=== PATIENT | male | born 1945 | race Caucasian/White ===

== ENCOUNTER 2021-07-22 13:59 | Emergency (ER) | payer MEDICARE, BC ==
[~2021-07-22] VITALS: Ht 175.3 cm; Wt 70.9 kg
[2021-07-22 14:39] LABS: MEAN CORPUSCULAR HEMOGLOBIN 34.5 PG (27.0-31.0); MEAN CORPUSCULAR HGB CONC 33.4 g/dL (33.0-36.5); MEAN CORPUSCULAR VOLUME 103.3 FL (78-98); MEAN PLATELET VOLUME 7.1 FL (7.4-10.4); PLATELET COUNT 141 X10'3 (140-440); RED BLOOD COUNT 1.77 X10'6 (4.70-6.10); RED CELL DISTRIBUTION WIDTH 18.4 % (11.5-14.5)
[2021-07-22 14:50] LABS: ALANINE AMINOTRANSFERASE 21 U/L (12-78); ALBUMIN 3.7 G/DL (3.4-5.0); ALBUMIN/GLOBULIN RATIO 0.9 (1.1-1.5); ALKALINE PHOSPHATASE 63 IU/L (46-116); ANION GAP 10 (8-16); ASPARTATE AMINO TRANSFERASE 13 U/L (10-37); BILIRUBIN,TOTAL 0.3 MG/DL (0.1-1.0); BLOOD UREA NITROGEN 25 MG/DL (7-18); BUN/CREATININE RATIO 15.1 (5.4-32.0); CALCIUM 8.7 MG/DL (8.5-10.1); CHLORIDE 103 MMOL/L (99-107); CREATININE 1.66 MG/DL (0.60-1.10); GLUCOSE 142 MG/DL (70-104); POTASSIUM 3.9 MMOL/L (3.5-5.1); SODIUM 139 MMOL/L (135-145); TOTAL CARBON DIOXIDE 26.1 MMOL/L (24-32); TOTAL PROTEIN 7.7 G/DL (6.4-8.2); eGFR 40 ML/MIN
[2021-07-22 15:02] LABS: WHITE BLOOD COUNT 46.1 X10'3 (4.5-11.0)
[2021-07-22 15:03] LABS: HEMATOCRIT 18.3 % (42.0-52.0); HEMOGLOBIN 6.1 g/dl (14.0-17.9)
--- NOTE | 2021-07-22 16:00 | NUR ---
dr. [email or web address] at bedside
[2021-07-22 16:50] LABS: ANISOCYTOSIS 2+; ELLIPTOCYTES FEW; NUCLEATED RED BLOOD CELLS 1 /100WBC (0-0); PLATELET ESTIMATE NORMAL; TOTAL CELLS COUNTED 100
[2021-07-22 16:52] LABS: SMUDGE CELLS 1+
[2021-07-22 18:53] VITALS: BP 127/72
[2021-07-22 19:43] VITALS: BP 131/78
[2021-07-22 20:41] VITALS: BP 132/82
[2021-07-22 21:15] VITALS: BP 132/82
== END 2021-07-22 21:16 | disposition home or self-care (01) ==
LOC: ER 14:02
DX: D72.829 Elevated white blood cell count, unspecified (principal); D64.9 Anemia, unspecified; R06.02 Shortness of breath; R53.1 Weakness; R05.9 Cough, unspecified; I10 Essential (primary) hypertension; Z72.89 Other problems related to lifestyle
CPT/HCPCS: 36415; 36430; 71045; 80053; 83880; 84484; 85007; 85025; 86644; 86885; 86900; 86901; 86920; 86945; 93005; 99291; P9016